=== PATIENT | male | born 1985 | race Caucasian/White ===

== ENCOUNTER 2020-07-26 09:17 | Outpatient (CLI) | payer OTHER | END 2020-07-26 09:18 | disposition home or self-care (01) | LOC: CSHWCC 09:17 | PROVIDERS: ATTEND Nurse Practitioner Family | DX: L89.314 Pressure ulcer of right buttock, stage 4 (principal); L03.317 Cellulitis of buttock; E11.622 Type 2 diabetes mellitus with other skin ulcer; A41.9 Sepsis, unspecified organism; G60.9 Hereditary and idiopathic neuropathy, unspecified; G82.20 Paraplegia, unspecified; I10 Essential (primary) hypertension; R32 Unspecified urinary incontinence; Z74.01 Bed confinement status ==

== ENCOUNTER 2020-12-26 10:43 | Outpatient (CLI) | payer OTHER | END 2020-12-26 10:44 | disposition home or self-care (01) | LOC: CSHWCC 10:43 | PROVIDERS: ATTEND Nurse Practitioner Family | DX: L89.312 Pressure ulcer of right buttock, stage 2 (principal); L89.314 Pressure ulcer of right buttock, stage 4; L03.317 Cellulitis of buttock; E11.622 Type 2 diabetes mellitus with other skin ulcer; A41.9 Sepsis, unspecified organism; G60.9 Hereditary and idiopathic neuropathy, unspecified; G82.20 Paraplegia, unspecified; I10 Essential (primary) hypertension; R32 Unspecified urinary incontinence; Z74.01 Bed confinement status | CPT/HCPCS: 99213; G0463 ==

== ENCOUNTER 2022-12-21 13:27 | Outpatient (CLI) | payer OTHER | END 2022-12-21 13:28 | disposition home or self-care (01) | LOC: CSHWCC 13:27 | PROVIDERS: ATTEND Physician Assistant | DX: L89.310 Pressure ulcer of right buttock, unstageable (principal); L98.412 Non-pressure chronic ulcer of buttock with fat layer exposed | CPT/HCPCS: 99214; G0463 ==

== ENCOUNTER 2023-02-01 08:41 | Outpatient (CLI) | payer OTHER | END 2023-02-01 08:42 | disposition home or self-care (01) | LOC: CSHWCC 08:41 | PROVIDERS: ATTEND Physician Assistant | DX: L89.310 Pressure ulcer of right buttock, unstageable (principal); L98.412 Non-pressure chronic ulcer of buttock with fat layer exposed | CPT/HCPCS: 99212; G0463 ==

== ENCOUNTER 2024-08-07 08:16 | Outpatient (CLI) | payer OTHER | END 2024-08-07 08:17 | disposition home or self-care (01) | LOC: CSHSLEEP 08:16 | PROVIDERS: ATTEND Student in an Organized Health Care Education/Training Program | DX: G47.33 Obstructive sleep apnea (adult) (pediatric) (principal); R53.83 Other fatigue; E66.9 Obesity, unspecified; Z68.36 Body mass index [BMI] 36.0-36.9, adult; R06.83 Snoring; I10 Essential (primary) hypertension; G47.10 Hypersomnia, unspecified | CPT/HCPCS: 95800 ==